=== PATIENT | female | born 1940 | race African-American/Black ===

== ENCOUNTER → 2017-04-03 | Outpatient (CLI) | payer OTHER | LOC: CIMAGING 08:17 | PROVIDERS: ATTEND Internal Medicine | DX: Z12.31 Encounter for screening mammogram for malignant neoplasm of breast (principal) | CPT/HCPCS: G0202 ==

== ENCOUNTER → 2018-07-19 | Outpatient (CLI) | payer OTHER | LOC: CIMAGING 07:46 | PROVIDERS: ATTEND Internal Medicine | DX: Z12.31 Encounter for screening mammogram for malignant neoplasm of breast (principal); Z13.820 Encounter for screening for osteoporosis; M81.0 Age-related osteoporosis without current pathological fracture; M85.89 Other specified disorders of bone density and structure, multiple sites; Z78.0 Asymptomatic menopausal state ==